=== PATIENT | female | born 1960 | race Caucasian/White ===

== ENCOUNTER 2017-02-11 19:22 | Emergency (ER) | payer BC, MEDICARE ==
[~2017-02-11] VITALS: Ht 174 cm; Wt 101.9 kg
[~2017-02-11 19:22] MED LIST: AMIT100T2 PO; ARIP15TA7 PO; BUSP15TA3 PO; CARI350T26 PO; FLUO40CA49 PO; GABA-338 PO; GLIP10TA9 PO; HYDR1TAB98 PO; INSU100V12 SQ; LISI40TA4 PO; METF-200 PO; OMEP40CA52 PO; PRAV20TA4 PO; ROPI1TAB12 PO; TRAM-277 PO; TRAZ-173 PO
--- OUTSIDE RECORDS SUMMARY | 2017-02-11 19:26 | XMS REPORT | Summary of Care ---
Author Author Jhony Chou, Jared Organization Unknown Address Unknown Phone Unavailable Care Team Providers Care Car Greaser Name Role Phone Jared Booker M.D. 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, E04.1) Status: Active Insomnia (780.52, G47.00) Status: Active Back pain (724.5, M54.9) Status: Active GERD (gastroesophageal reflux disease) (530.81, K21.9) Status: Active Neuropathy in diabetes (250.60, E11.40) Status: Active Callus of foot (700, L84) Status: Active Acne (706.1, L70.9) Status: Active Depression (311, F32.9) Status: Active Hypertension (401.9, I10) Status: Active Hypercholesterolemia (272.0, E78.0) Status: Active Neck pain, acute (723.1, M54.2) Status: Active Former smoker (V15.82, Z87.891) Status: Active Uncontrolled diabetes mellitus (250.02, E11.65) Status: Active Nausea with vomiting (787.01, R11.2) Status: Active Acute pain of left knee (719.46, M25.562) Status: Active Restless legs syndrome (333.94, G25.81) Status: Active Type 2 diabetes mellitus (250.00, E11.9) Status: Active Status post arthroscopy of left knee (V45.89, Z98.89) Status: Active Derangement, knee internal, 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.9, M23.92) Status: Active Medications Name Dates Details BusPIRone HCl - 10 MG Oral Tablet Take 1 tablet by mouth 3 times a day Quantity: 270 Jhony Chou, Jared * Start 04-Jun-2012 Active Amitriptyline HCl - 100 MG Oral Tablet Take 1 tablet by mouth at bedtime * Quantity: 90 Refills: 0 Jhony Chou, Jared * Start 04-Jun-2012 Active TraMADol HCl - 50 MG Oral Tablet TAKE ONE TO TWO TABLETS BY MOUTH THREE TIMES A DAY MUST LAST 30 DAYS * Quantity: 180 Refills: 0 Jhony Chou, aJred * Start 24-Jun-2016 Active MetFORMIN HCl - 1000 MG Oral Tablet TAKE 1 TABLET BY MOUTH TWICE A DAY * Quantity: 180 Refills: 3 Jhony Chou, Jared * Start 04-Jun-2012 Active Gabapentin 300 MG Oral Capsule TAKE ONE CAPSULE BY MOUTH 3 TIMES A DAY * Quantity: 270 Refills: 2 Jhony Chou, Jared * Start 04-Jun-2012 Active GlipiZIDE 10 MG Oral Tablet TAKE 1 TABLET BY MOUTH TWICE A DAY * Quantity: 180 Refills: 3 Jared Booker M.D. * Start 04-Jun-2012 Active MedroxyPROGESTERone Acetate 2.5 MG Oral Tablet take one tablet by mouth every day * Quantity: 30 Refills: 7 Jhony Chou, Jared * Start 06-Jul-2012 Active Lisinopril 40 MG Oral Tablet take 1 tablet by mouth every day * Quantity: 90 Refills: 3 Jared Booker M.D. * Start 04-Aug-2012 Active Omeprazole 40 MG Oral Capsule Delayed Release TAKE ONE CAPSULE BY MOUTH EVERY DAY * Quantity: 90 Refills: 3 Jared Booker M.D. * Start 12-Aug-2012 Active Hydrocodone-Acetaminophen 10-325 MG Oral Tablet TAKE TWO TABLETS BY MOUTH FOUR TIMES A DAY NEEDED FOR PAIN * Quantity: 240 Refills: 0 Jhony Chou, Jared * Start 04-Sep-2012 Active Pravastatin Sodium 20 MG Oral Tablet take 1 tablet by mouth every day * Quantity: 90 Refills: 3 Jared Booker M.D. * Start 11-Dec-2012 Active [place] needles for levemir pen. One shot a day * Quantity: 50 Refills: 11 Jhony Chou, Jared * Start 15-Dec-2012 Active TraZODone HCl - 100 MG Oral Tablet 1 1/2 to 2 tabs hs * Refills: 0 Jhony Chou, Jared * Start 13-Jan-2013 Active ROPINIRole HCl - 1 MG Oral Tablet Take 1 to 2 tablets by mouth every day * Quantity: 180 Refills: 2 Jhony Chou, Jared * Start Active Carisoprodol 350 MG Oral Tablet TAKE ONE TABLET BY MOUTH THREE TIMES A DAY * Quantity: 90 Refills: 3 Jhony Chou, Jared * Start 10-Sep-2013 Active Ibuprofen 800 MG Oral Tablet TAKE 1 TABLET BY MOUTH 3 TIMES A DAY WITH FOOD NEEDED * Quantity: 120 Refills: 3 Jhony Chou, Jared * Start 14-Jan-2014 Active FLUoxetine HCl - 20 MG Oral Capsule TAKE THREE CAPSULES BY MOUTH EVERY DAY * Quantity: 270 Refills: 2 Jhony Chou, Jared * Start 11-Oct-2014 Active Abilify 15 MG Oral Tablet TAKE 1 TABLET DAILY. * Refills: 0 Jhony Chou, Jared * Start 06-Feb-2015 Active [place]jeo SoloStar 300 UNIT/ML Subcutaneous Solution Pen-injector 25 units daily * Quantity: 1 Refills: 11 Jhony Chou, Jared * Start 13-Oct-2015 Active 1.5 ML Pen (3 Pens) Aspir-Low 81 MG Oral Tablet Delayed Release TAKE 1 TABLET DAILY DIRECTED. * Quantity: 1 Refills: 0 Jhony Chou, Jared * Start 19-Feb-2016 Active Promethazine HCl - 25 MG Oral Tablet TAKE 1 TABLET EVERY 8 HOURS NEEDED FOR NAUSEA AND VOMITING. * Quantity: 30 Refills: 1 Jhony Chou, Jared * Start Active Allergies and Adverse Reactions Name Dates Details Codeine Derivatives (Allergy) Status: Active Past Medical History Name Dates Details History of abdominal pain (V13.89, Z87.898) Status: Resolved History of acute bronchitis (V12.69, Z87.09) Status: Resolved History of allergic rhinitis (V12.69, Z87.09) Status: Resolved History of Common migraine without aura (346.10, G43.009) Status: Resolved History of depression (V11.8, Z86.59) Status: Resolved History of diabetes mellitus (V12.29, Z86.39) Status: Resolved History of essential hypertension (V12.59, Z86.79) Status: Resolved History of headache (V13.89, Z87.898) Status: Resolved History of low back pain (V13.59, Z87.39) Status: Resolved History of Stroke syndrome (434.91, I63.9) Status: Resolved Procedures Procedure Dates Details History of Lower Back Surgery History of Appendectomy History of Cholecystectomy History of Complete Colonoscopy For Polyp Removal Completed: Procedures not documented Immunization Name Dates Details Diphtheria-Tetanus Toxoids 6.7-5 LFU/0.5ML INJ on: Td on: Family History Name Dates Details Family history of Diabetes Mellitus (V18.0) Comments: Family History Status: Active Name Dates Details Family history of Diabetes Mellitus (V18.0) Status: Active Family history of Coronary Artery Disease (V17.49) Status: Active Name Dates Details Family history of Coronary Artery Disease (V17.49) Status: Active Social History Name Dates Details Unknown if ever smoked Vital Signs Date Test Result Details No Known Vitals to report Results Date Description Value Details Results not documented Plan of Care Name Dates Details Planned Observations Planned Goals not documented Interventions Provided Medication Changes* Hydrocodone-Acetaminophen 10-325 MG Oral Tablet - Renew Instructions Name Dates Details Instructions not documented Encounters Appointment; Thomas Levy M.D. Encounter Diagnosis: Problem not documented On 13-May-2016 10:45 Appointment; Thomas Levy M.D. Encounter Diagnosis: Problem not documented On 09:45 Appointment; Thomas Levy M.D. Encounter Diagnosis: Problem not documented On 09:00 Appointment; Jared Booker M.D. Encounter Diagnosis: Problem not documented On 10:15 Appointment; Jared Booker M.D. Encounter Diagnosis: Problem not documented On 19-Feb-2016 10:15 Appointment; Jared Booker M.D. Encounter Diagnosis: Problem not documented On 20-Oct-2015 10:15 Appointment; Jared Booker M.D. Encounter Diagnosis: Problem not documented On 16-Jun-2015 09:00 Appointment; Jared Booker M.D. Encounter Diagnosis: Problem not documented On 06-Feb-2015 10:00 Appointment; Jared Booker M.D. Encounter Diagnosis: Problem not documented On 22-Nov-2014 16:15 Appointment; Jared Booker M.D. Encounter Diagnosis: Problem not documented On 03-Nov-2014 10:30 Appointment; Jared Booker M.D. Encounter Diagnosis: Problem not documented On 04-Aug-2014 10:45
--- OUTSIDE RECORDS SUMMARY | 2017-02-11 19:27 | XMS REPORT ---
Author Author GENERATED, SYSTEM Organization Unknown Address Unknown Phone Unavailable Care Team Providers Care Marine Fireman Name Role Phone MD SARAH, NINI PP [phone] Reason For Visit Reason for Visit from 04/09/2016 6:40 AM:* Pt Stated Reason for Adm : "left knee arthroscopy" Chief Complaint LEFT KNEE PAIN,LEFT KNEE ARTHROSCOP Social History Social History from 04/09/2016 8:28 AM:* Tobacco Use? : Former Smoker Social History from 04/09/2016 6:40 AM:* Tobacco Use? : Former Smoker Functional Status Functional Status from 04/09/2016 9:08 AM:* LOC : Alert Functional Status from 04/09/2016 9:05 AM:* LOC : Alert Functional Status from 04/09/2016 8:29 AM:* LOC : Drowsy Functional Status from 04/09/2016 6:40 AM:* LOC : Alert * Oriented To : Person,Place,Time,Event * Weight Bearing Status : Full * Assist Level : Independent * # Assists : Independent Vital Signs Hospital Vital Signs from 04/09/2016 9:43 AM:* Height : 5/7.25 ft,in * Temperature : 97.0 F * Pulse : 83 * Respirations : 16 * BP : 134/58 Hospital Vital Signs from 04/09/2016 9:30 AM:* Height : 5/7.25 ft,in * Pulse : 83 * Respirations : 16 * BP : 121/69 Hospital Vital Signs from 04/09/2016 9:15 AM:* Height : 5/7.25 ft,in * Pulse : 85 * Respirations : 16 * BP : 122/62 Hospital Vital Signs from 04/09/2016 9:08 AM:* Height : 5/7.25 ft,in * Temperature : 97.3 F * Pulse : 81 * Respirations : 16 * BP : 128/62 Hospital Vital Signs from 04/09/2016 9:00 AM:* Heart Rate : 86 * Resp Rate : 13 * Systolic BP (mmHg) : 119 * Diastolic BP (mmHg) : 62 * Mean BP (mmHg) : 80 * O2 Saturation (%) : 93 Hospital Vital Signs from 04/09/2016 8:55 AM:* Heart Rate : 90 * Resp Rate : 16 * Systolic BP (mmHg) : 133 * Diastolic BP (mmHg) : 69 * Mean BP (mmHg) : 91 * O2 Saturation (%) : 92 Hospital Vital Signs from 04/09/2016 8:50 AM:* Heart Rate : 87 * Resp Rate : 18 * Systolic BP (mmHg) : 121 * Diastolic BP (mmHg) : 67 * Mean BP (mmHg) : 87 * O2 Saturation (%) : 92 Hospital Vital Signs from 04/09/2016 8:45 AM:* Temp : 98.4 * Heart Rate : 89 * Resp Rate : 18 * Systolic BP (mmHg) : 138 * Diastolic BP (mmHg) : 70 * Mean BP (mmHg) : 90 * O2 Saturation (%) : 100 Hospital Vital Signs from 04/09/2016 8:40 AM:* Heart Rate : 89 * Resp Rate : 18 * Systolic BP (mmHg) : 152 * Diastolic BP (mmHg) : 83 * Mean BP (mmHg) : 99 * O2 Saturation (%) : 99 Hospital Vital Signs from 04/09/2016 8:35 AM:* Heart Rate : 97 * Resp Rate : 20 * Systolic BP (mmHg) : 151 * Diastolic BP (mmHg) : 75 * Mean BP (mmHg) : 97 * O2 Saturation (%) : 98 Hospital Vital Signs from 04/09/2016 8:30 AM:* Temp : 97.5 * Heart Rate : 105 * Resp Rate : 16 * Systolic BP (mmHg) : 145 * Diastolic BP (mmHg) : 84 * Mean BP (mmHg) : 96 * O2 Saturation (%) : 95 Hospital Vital Signs from 04/09/2016 6:40 AM:* Weight : 104.3/ kg * Height : 5/7.25 ft,in Hospital Vital Signs from 04/09/2016 6:23 AM:* Weight : 104.3/ kg * Height : 5/7.25 ft,in * Temperature : 98.4 F * Pulse : 77 * Respirations : 16 * BP : 121/67 Results Problems Encounter Diagnosis * Fall Risk Status:Active. Encounters Encounter Diagnosis * Fall Risk Status:Active. Plan of Care Follow-up Appointments from 04/09/2016 8:28 AM:* #1 Office appointment: : Dr. Oakley * #1 Date/Time : 04/15/2016 9:45 AM * Address # 1 : [facility]: [address] [place]- [phone] or Procedures * Completed left knee arthroscopy with medial meniscectomy, Left, by MD JACE OAKLEY, on 04/09/2016 7:42 AM Immunizations No immunizations administered or ordered. Hospital Course Hospital Discharge Instructions How to care for yourself at home from 04/09/2016 8:28 AM:* Discharge Activity : Activity as tolerated,Do not engage in sports, heavy work or heavy lifting until your physician gives permission * Do not drive or operate machinery for: : 24 hours * Discharge Diet : As before hospitalization,Diet as tolerated * Discharge Diet: : Avoid greasy and spicy foods for 24 hours as they may cause nausea * Discharge Wound Care : Keep dressings dry * Call your doctor if: : Fever over 101 F or severe chills,Chest pain or other unexplained symptoms,Tingling or numbness develops,A sudden increase or decrease in weight,You have persistent or worsening symptoms * Specific Discharge Teaching Instructions provided: : No * Discharge on Warfarin : No Allergies, Adverse Reactions, Alerts * codeine causes can't breathe, swelling. * No Latex Allergy. * No IV Contrast Allergy. Medication Medication reconciliation has not been performed.
--- OUTSIDE RECORDS SUMMARY | 2017-02-11 19:27 | XMS REPORT | Summary of Care ---
Author Author Jhony Chou, Jared Organization Unknown Address Unknown Phone Unavailable Care Team Providers Care Calender Roll Press Operator Name Role Phone Jared Booker M.D. Unavailable [...] Status: Active Depression (311, F32.9) Status: Active Neck pain, acute (723.1, M54.2) Status: Active Former smoker (V15.82, Z87.891) Status: Active Uncontrolled diabetes mellitus (250.02, E11.65) Status: Active Nausea with vomiting (787.01, R11.2) Status: Active Acute pain of left knee (719.46, M25.562) Status: Active Restless legs syndrome (333.94, G25.81) Status: Active Status post arthroscopy of left knee (V45.89, Z98.890) Status: Active Derangement, knee internal, left (717.9, M23.92) Status: Active Type 2 diabetes mellitus (250.00, E11.9) Status: Active Hypercholesterolemia (272.0, E78.00) Status: Active Hypertension (401.9, I10) Status: Active Medications Name Dates Details BusPIRone [...] TABLETS BY MOUTH THREE TIMES A DAY . MUST LAST 30 DAYS * Quantity: 180 Refills: 0 Jhony Chou, Jared * Start 15-Oct-2016 Active MetFORMIN HCl - 1000 MG Oral Tablet TAKE 1 TABLET BY MOUTH TWICE A DAY * Quantity: 180 Refills: 2 Jhony Chou, Jared * Start 14-Oct-2016 Active Gabapentin 300 MG Oral Capsule TAKE ONE CAPSULE BY MOUTH 3 TIMES A DAY * Quantity: 270 Refills: 2 Jhony Chou, Jared * Start 04-Jun-2012 Active GlipiZIDE 10 MG Oral Tablet TAKE 1 TABLET BY MOUTH TWICE A DAY * Quantity: 180 Refills: 3 Jhony Chou, Jared * Start 21-Oct-2016 Active MedroxyPROGESTERone Acetate 2.5 MG Oral Tablet take one tablet by mouth every day * Quantity: 90 Refills: 2 Jhony Chou, Jared * Start 17-Jul-2016 Active Lisinopril 40 MG Oral Tablet take 1 tablet by mouth every day * Quantity: 90 Refills: 0 Jhony Chou, Jared * Start 23-Oct-2016 Active Omeprazole 40 MG Oral Capsule Delayed Release TAKE ONE CAPSULE BY MOUTH EVERY DAY * Quantity: 90 Refills: 0 Jhony Chou, Jared * Start 23-Oct-2016 Active Hydrocodone-Acetaminophen 10-325 MG Oral Tablet TAKE TWO TABLETS BY MOUTH FOUR TIMES A DAY NEEDED FOR PAIN * Quantity: 240 Refills: 0 Jhony Chou, Jared * Start 04-Sep-2012 Active Pravastatin Sodium 20 MG Oral Tablet take 1 tablet by mouth every day * Quantity: 90 Refills: 3 Jhony Chou, Jared * Start 11-Dec-2012 Active [place] needles for levemir pen. One shot a [...] TIMES A DAY * Quantity: 90 Refills: 2 Jhony Chou, Jared * Start 15-Oct-2016 Active Ibuprofen 800 MG Oral Tablet TAKE 1 TABLET BY MOUTH 3 TIMES A DAY WITH FOOD NEEDED * Quantity: 120 Refills: 2 Jhony Chou, Jared * Start 16-Sep-2016 Active FLUoxetine HCl - 20 MG Oral Capsule TAKE THREE CAPSULES BY MOUTH EVERY DAY * Quantity: 270 Refills: 2 Jhony Chou Jared * Start 11-Oct-2014 Active Abilify 15 MG Oral Tablet TAKE 1 TABLET DAILY. * Refills: 0 Jhony Chou, Jared * Start 06-Feb-2015 Active Aspir-Low 81 MG Oral Tablet Delayed Release TAKE 1 TABLET DAILY DIRECTED. * Quantity: 1 Refills: 0 Jhony Chou, Jared * Start 19-Feb-2016 Active Promethazine HCl - 25 MG Oral Tablet TAKE 1 TABLET EVERY 8 HOURS NEEDED FOR NAUSEA AND VOMITING. * Quantity: 30 Refills: 1 Jared Booker M.D. * Start Active Levemir FlexTouch 100 UNIT/ML Subcutaneous Solution Pen-injector 28 units q hs for E11.9 * Quantity: 1 Refills: 11 Jared Booker M.D. * Start 28-Oct-2016 Active 3 ML Pen (5 Pens) Allergies and Adverse Reactions Name Dates Details [...] of Complete Colonoscopy For Polyp Removal Completed: Quant Microalbumin 1106 Ordered: 28-Oct-2016 Comprehensive Metabolic Panel 1212 Ordered: 28-Oct-2016 HEMOGLOBIN A1C 3507 Ordered: 28-Oct-2016 Immunization Name Dates Details Diphtheria-Tetanus Toxoids 6.7-5 [...] smoked Vital Signs Date Test Result Details 28-Oct-2016 08:53 BP Systolic 128 mm[Hg] Status: Comments: Location: ; Position: BP Diastolic 66 mm[Hg] Status: Comments: Location: ; Position: Heart Rate 108 /min Status: Comments: Location: ; Height 69 in Status: Weight 220 lb Status: Physical Findings 94 Status: Comments: O2 Saturation Body Mass Index Calculated 32.49 kg/m2 Status: Body Surface Area Calculated 2.15 m2 Status: Results Date Description Value Details 28-Oct-2016 09:00 Urinalysis, reflex to Micro and Culture ([facility]) 3317 Comments: Testing performed by [facility], [address] [place] [id number] Testing performed by [facility], [address] [place] [id number] Fasting : 0 hours pH 5.5 Range: 5.0-7.5 SP GRAVITY 1.030 Range: 1.010-1.030 APPEARANCE Cloudy (Abnormal) Range: Clear COLOR Yellow Range: Straw-Yellow PROTEIN 15 mg/dL (Abnormal) Range: Negative-Trace GLUCOSE Negative mg/dL Range: Negative KETONES Negative mg/dL Range: Negative BILIRUBIN Negative Range: Negative BLOOD Negative Range: Negative UROBIL 0.2 EU/dL Range: 0.2-1.0 NITRITE Negative Range: Negative LEUKOCYTES 3+ (Abnormal) Range: Negative 09:25 CBC w/ Auto Diff 7150 Comments: Fastin hours WBC 8.5 K/uL Range: 4.5-11.0 RBC 4.94 mil/uL Range: 3.60-5.00 HGB 14.5 g/dL Range: 12.0-16.0 HCT 44.2 % Range: 36.0-48.0 MCV 89.5 fL Range: 80.0-99.0 MCH 29.4 pg Range: 27.3-32.5 MCHC 32.9 % Range: 32.0-36.0 RDW 13.7 % Range: 11.6-14.8 PLATELETS 248 K/uL Range: 150-400 MPV 7.0 fL Range: 6.0-11.0 %NEUTRO 56.3 % Range: 37.0-80.0 %LYMPHS 33.9 % Range: 13.0-50.0 %MONO 4.6 % Range: 0.0-12.0 %EOS 2.4 % Range: 0.0-7.0 %BASO 0.7 % Range: 0.0-2.5 %CHELI 2.1 % Range: 0.0-5.0 NEUTRO 4.8 K/uL Range: 2.0-6.9 LYMPHS 2.9 K/uL Range: 0.6-3.4 MONOS 0.4 K/uL Range: 0.0-0.9 EOS 0.2 K/uL Range: 0.0-0.7 BASO 0.1 K/uL Range: 0.0-0.2 09:56 Comprehensive Metabolic Panel 1212 Comments: Fastin hours SODIUM 141 mmol/L Range: 133-144 POTASSIUM 3.8 mmol/L Range: 3.5-5.1 CHLORIDE 102 mmol/L Range: 98-110 CARBON DIOXIDE 27.4 mmol/L Range: 23.0-33.0 ANION GAP 12 mmol/L Range: 6-16 BUN 11 mg/dL Range: 7-18 CREATININE, SERUM 0.96 mg/dL Range: 0.55-1.02 BUN:CREATININE RATIO 11 EST GFR, >60 ml/min Range: >60 EST GFR, NON-AFR BURKINAN >60 ml/min Range: >60 Comments: EST GFR is reported in ml/min per 1.73 m2 of body surface area. ----- GLUCOSE 153 mg/dL (Above high threshold) Range: 70-100 ALK PHOSPHATASE 104 U/L Range: 46-116 TOTAL BILIRUBIN 0.30 mg/dL Range: 0.20-1.00 AST 53 U/L (Above high threshold) Range: 8-35 ALT 47 U/L Range: 14-59 ALBUMIN 3.8 g/dL Range: 3.4-5.0 TOTAL PROTEIN 8.1 g/dL Range: 6.4-8.2 A/G RATIO 0.9 units (Below low threshold) Range: 1.0-1.8 CALCIUM 8.7 mg/dL Range: 8.5-10.1 09:56 LIPID PROFILE 1184 Comments: Fastin hours CHOLESTEROL 156 mg/dL Range: <200 TRIGLYCERIDES 143 mg/dL Range: 30-200 HDL Cholesterol 57 mg/dL Range: >39 NON HDL CHOLESTEROL 99 CARDIAC RSK FACTOR 2.7 units (Below low threshold) Range: 4.4-5.0 LDL - CALCULATED 70 mg/dL Range: 0-130 10:36 HEMOGLOBIN A1C 3507 Comments: Fastin hours Hemoglobin A1C 7.9 % ESTIMATED AVG. GLUCOSE 180 10:49 Urine Microscopic [facility] Comments: Fastin hours WBC 11-20 /HPF (Abnormal) Range: 0-5 Comments: Specimen referred to Reference Lab for Culture----- RBC 0-2 /HPF Range: 0-2 HYAL CAST 21-50 /LPF (Abnormal) Range: 0-2 BACTERIA 3+ /HPF (Abnormal) Range: Negative-Trace Comments: Specimen referred to Reference Lab for Culture----- EPITH 11-20 /HPF (Abnormal) Range: 0-10 Plan of Care Name Dates Details Planned Observations Comprehensive Metabolic Panel 1212 On 25-Feb-2017 Intent HEMOGLOBIN A1C 3507 On 25-Feb-2017 Intent Planned Goals not documented Planned Encounters Appointment; Provider: Jared Booker M.D. On 21-Feb-2017 10:15 Interventions Provided Medication Changes* Hydrocodone-Acetaminophen 10-325 MG Oral Tablet - Renew * Lantus SoloStar 100 UNIT/ML Subcutaneous Solution Pen-injector - Renew * Levemir FlexTouch 100 UNIT/ML Subcutaneous Solution Pen-injector - Renew Labs/Procedures/Imaging* Quant Microalbumin 1106; To be Done: 28 Oct 2016 * CBC w/ Auto Diff 7150; Done: Oct 28 2016 8:16AM * Comprehensive Metabolic Panel 1212; Done: Oct 28 2016 8:16AM * HEMOGLOBIN A1C 3507; Done: Oct 28 2016 8:16AM * LIPID PROFILE 1184; Done: Oct 28 2016 8:16AM * Urinalysis, reflex to Micro and Culture ([facility]) 8016; Done: Oct 28 2016 8:16AM Instructions Name Dates Details Instructions not documented [...]
--- OUTSIDE RECORDS SUMMARY | 2017-02-11 19:27 | XMS REPORT | Summary of Care ---
Author Author Conrad Helms Unknown Address [address], [place] [id number] Phone Unavailable Care Team Providers Care Geriatric Physician Name Role Phone Jared Booker M.D. 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: Active Medications Name Dates Details BusPIRone HCl - 10 MG Oral Tablet Take 1 tablet by mouth 3 times a day Quantity: 270 Jared Booker M.D.* Started 04-Jun-2012 ActiveAmitriptyline HCl - 100 MG Oral Tablet Take 1 tablet by mouth at bedtime * Quantity: 90 Refills: 0 Jared Booker M.D.* Started 04-Jun-2012 ActiveTraMADol HCl - 50 MG Oral Tablet TAKE ONE TO TWO TABLETS BY MOUTH THREE TIMES A DAY MUST LAST 30 DAYS * Quantity: 180 Refills: 0 Jared Booker M.D.* Started 04-Jun-2012 ActiveMetFORMIN HCl - 1000 MG Oral Tablet TAKE 1 TABLET BY MOUTH TWICE A DAY * Quantity: 180 Refills: 3 Jared Booker M.D.* Started 04-Jun-2012 ActiveGabapentin 300 MG Oral Capsule TAKE ONE CAPSULE BY MOUTH AM AND NOON AND TWO AT BEDTIME * Quantity: 360 Refills: 1 Jared Booker M.D.* Started 04-Jun-2012 ActiveGlipiZIDE 10 MG Oral Tablet TAKE 1 TABLET BY MOUTH TWICE A DAY * Quantity: 180 Refills: 3 Jared Booker M.D.* Started 04-Jun-2012 ActiveMedroxyPROGESTERone Acetate 2.5 MG Oral Tablet take one tablet by mouth every day * Quantity: 30 Refills: 7 Jared Booker M.D.* Started 06-Jul-2012 ActiveLisinopril 40 MG Oral Tablet take 1 tablet by mouth every day * Quantity: 90 Refills: 3 Jared Booker M.D.* Started 04-Aug-2012 ActiveOmeprazole 40 MG Oral Capsule Delayed Release TAKE ONE CAPSULE BY MOUTH EVERY DAY * Quantity: 90 Refills: 3 Jared Booker M.D.* Started 12-Aug-2012 ActiveHydrocodone-Acetaminophen 10-325 MG Oral Tablet TAKE TWO TABLETS BY MOUTH FOUR TIMES A DAY NEEDED FOR PAIN * Quantity: 240 Refills: 0 Jared Booker M.D.* Started 04-Sep-2012 ActivePravastatin Sodium 20 MG Oral Tablet take 1 tablet by mouth every day * Quantity: 90 Refills: 3 Jared Booker M.D.* Started 11-Dec-2012 Active[place] needles for levemir pen. One shot a day * Quantity: 50 Refills: 11 Jared Booker M.D.* Started 15-Dec-2012 ActiveTraZODone HCl - 100 MG Oral Tablet 1 1/2 to 2 tabs hs * Refills: 0 Jared Booker M.D.* Started 13-Jan-2013 ActiveROPINIRole HCl - 1 MG Oral Tablet Take 1 to 2 tablets by mouth every day * Quantity: 180 Refills: 2 Jared Booker M.D.* Started ActiveCarisoprodol 350 MG Oral Tablet TAKE ONE TABLET BY MOUTH THREE TIMES A DAY * Quantity: 90 Refills: 3 Jared Booker M.D.* Started 10-Sep-2013 ActiveIbuprofen 800 MG Oral Tablet TAKE ONE TABLET BY MOUTH THREE TIMES A DAY WITH FOOD NEEDED * Quantity: 270 Refills: 3 Jared Booker M.D.* Started 14-Jan-2014 ActiveFLUoxetine HCl - 20 MG Oral Capsule TAKE THREE CAPSULES BY MOUTH EVERY DAY * Quantity: 270 Refills: 2 Jared Booker M.D.* Started 11-Oct-2014 ActiveAbilify 15 MG Oral Tablet TAKE 1 TABLET DAILY. * Refills: 0 Jared Booker M.D.* Started 06-Feb-2015 ActiveToujeo SoloStar 300 UNIT/ML Subcutaneous Solution Pen-injector 25 units daily * Quantity: 1 Refills: 11 Jared oBoker M.D.* Started 13-Oct-2015 Active1.5 ML Pen (3 Pens) Aspir-Low 81 MG Oral Tablet Delayed Release TAKE 1 TABLET DAILY DIRECTED. * Quantity: 1 Refills: 0 Jared Booker M.D.* Started 19-Feb-2016 ActivePromethazine HCl - 25 MG Oral Tablet TAKE 1 TABLET EVERY 8 HOURS NEEDED FOR NAUSEA AND VOMITING. * Quantity: 30 Refills: 1 Jared Booker M.D.* Started Active Allergies and Adverse Reactions Name Dates Details Codeine Derivatives Status: Active Past Medical History Name Dates [...] of Complete Colonoscopy For Polyp Removal Completed: Comprehensive Metabolic Panel 1212 Ordered: HEMOGLOBIN A1C 3507 Ordered: Immunization Name Dates Details Diphtheria-Tetanus Toxoids 6.7-5 LFU/0.5ML Intramuscular Injectable Administered on: Td Administered on: Family History Unknown Family Member* Name Dates Details Family history of Diabetes Mellitus (V18.0) Comments: Family History Status: Active Mother* Name Dates Details Family history of Diabetes Mellitus (V18.0) Status: Active Family history of Coronary Artery Disease (V17.49) Status: Active Father* Name Dates Details Family history of Coronary Artery Disease (V17.49) Status: Active Social History Smoking Status* Unknown if ever smoked Vital Signs Date Test Result Details 09:39 BP Systolic 136 mm[Hg] Status: BP Diastolic 82 mm[Hg] Status: Height 69 in Status: Weight 230 lb Status: Body Mass Index Calculated 33.97 kg/m2 Status: Body Surface Area Calculated 2.19 m2 Status: 10:27 BP Systolic 140 mm[Hg] Status: BP Diastolic 70 mm[Hg] Status: Temperature 97.8 f Status: Heart Rate 88 /min Status: Respiration Rate 12 /min Status: Weight 230 lb Status: Body Mass Index Calculated 33.97 kg/m2 Status: Body Surface Area Calculated 2.19 m2 Status: Results Date Description Value Details 12:00 XRay KNEE-Left Comments: Exam Date: 03/22/2016 10: 57Dictation Date: 03/22/2016 12:00 X KNEE COMP (MIN 4V) LT (Better) Plan of Care Planned Observations* Name Dates Details Planned Goals not documented Goal Planned Encounters* Appointment; Provider: Jared Booker On 21-Jun-2016 10:30 * Appointment; Provider: Thomas Levy On 09:45 * Appointment; Provider: Thomas Leyv On 07:00 * Appointment; Provider: Buck Stuart On 10:00 Instructions * Instructions not documented Encounters Appointment; Thomas Levy Encounter Diagnosis: Problem not documented On 09:00 Appointment; Jared Booker Diagnosis: Problem not documented On 10:15 Appointment; Jared Booker Diagnosis: Problem not documented On 19-Feb-2016 10:15 Appointment; Jared Booker Encounter Diagnosis: Problem not documented On 20-Oct-2015 10:15 Appointment; Jared Booker Encounter Diagnosis: Problem not documented On 16-Jun-2015 09:00 Appointment; Jared Booker Encounter Diagnosis: Problem not documented On 06-Feb-2015 10:00 Appointment; Jared Booker Diagnosis: Problem not documented On 22-Nov-2014 16:15 Appointment; Jared Booker Diagnosis: Problem not documented On 03-Nov-2014 10:30 Appointment; Jared Booker Diagnosis: Problem not documented On 04-Aug-2014 10:45 Appointment; Jared Booker Encounter Diagnosis: Problem not documented On 18-May-2014 10:15
--- OUTSIDE RECORDS SUMMARY | 2017-02-11 19:27 | XMS REPORT | Summary of Care ---
Author Author Jhony Chou, Jared Organization Unknown Address Unknown Phone Unavailable Care Team Providers Care Financial Investment Adviser Name Role Phone Jared Booker M.D. Unavailable [...] daily * Quantity: 1 Refills: 11 Jared Booker M.D.* Started 13-Oct-2015 Active1.5 ML Pen (3 [...] Levy On 09:45 * Appointment; Provider: Thomas Levy On 07:00 * Appointment; Provider: Buck Stuart On 10:00 Instructions * Instructions not documented Encounters Appointment; Thomas Levy Encounter Diagnosis: Problem not documented On 09:00 Appointment; Jared Booker Encounter Diagnosis: Problem not documented On 10:15 Appointment; Jared Booker Encounter Diagnosis: Problem not documented On 19-Feb-2016 10:15 Appointment; Jared Booker Encounter Diagnosis: Problem not documented On 20-Oct-2015 10:15 Appointment; Jared Booker Encounter Diagnosis: Problem not documented On 16-Jun-2015 09:00 Appointment; Jared Booker Encounter Diagnosis: Problem not documented On 06-Feb-2015 10:00 Appointment; Jared Booker Encounter Diagnosis: Problem not documented On 22-Nov-2014 16:15 Appointment; Jared Booker Encounter Diagnosis: Problem not documented On 03-Nov-2014 10:30 Appointment; Jared Booker Diagnosis: Problem not documented On 04-Aug-2014 10:45 Appointment; Jared Booker Encounter Diagnosis: Problem not documented On 18-May-2014 10:15
--- OUTSIDE RECORDS SUMMARY | 2017-02-11 19:27 | XMS REPORT | Summary of Care ---
Author Author Jared Booker M.D. Organization Unknown Address [address] [place], [place] [id number] Phone Unavailable Care Team Providers Care Press Feeder Name Role Phone Jared Booker M.D. Unavailable [...] Status: Active Insomnia (780.52, G47.00) Status: Active Restless legs syndrome (333.94, G25.81) Status: Active Back pain (724.5, M54.9) Status: Active GERD (gastroesophageal reflux disease) (530.81, K21.9) Status: Active Neuropathy in diabetes (250.60, E11.40) Status: Active Callus of foot (700, L84) Status: Active Acne (706.1, L70.9) Status: Active Depression (311, F32.9) Status: Active Hypertension (401.9, I10) Status: Active Hypercholesterolemia (272.0, E78.0) Status: Active Neck pain, acute (723.1, M54.2) Status: Active Type 2 diabetes mellitus (250.00, E11.9) Status: Active Medications Name Dates Details Cyclobenzaprine HCl - 10 MG Oral Tablet TAKE ONE TABLET BY MOUTH THREE TIMES A DAY NEEDED Quantity: 90 Jared Booker M.D.* Started 04-Jun-2012 ActiveBusPIRone HCl - 10 MG Oral Tablet Take 1 tablet by mouth 3 times a day * Quantity: 270 Refills: 2 Jared Booker M.D.* Started 04-Jun-2012 ActiveAmitriptyline HCl - 100 MG Oral Tablet Take 1 tablet by mouth at bedtime * Quantity: 90 Refills: 2 Jared Booker M.D.* Started 04-Jun-2012 ActiveTraMADol HCl - 50 MG Oral Tablet TAKE 1-2 TABLETS BY MOUTH THREE TIMES A DAY *MUST LAST 30 DAYS* * Quantity: 180 Refills: 1 Jared Booker M.D.* Started 04-Jun-2012 ActiveMetFORMIN HCl - 1000 MG Oral Tablet TAKE 1 TABLET BY MOUTH TWICE A DAY * Quantity: 180 Refills: 3 Jared Booker M.D.* Started 04-Jun-2012 ActiveGabapentin 300 MG Oral Capsule TAKE ONE CAPSULE BY MOUTH 3 TIMES A DAY * Quantity: 270 Refills: 1 Jared Booker M.D.* Started 04-Jun-2012 [...] Refills: 11 Jared Booker M.D.* Started 15-Dec-2012 ActiveROPINIRole HCl - 1 MG Oral Tablet Take 1 to 2 tablets by mouth every day * Quantity: 180 Refills: 2 Jared Booker M.D.* Started ActiveCarisoprodol 350 MG Oral Tablet TAKE ONE TABLET BY MOUTH THREE TIMES A DAY * Quantity: 90 Refills: 3 Jared Booker M.D.* Started 10-Sep-2013 ActiveFLUoxetine HCl - 20 MG Oral Capsule TAKE THREE CAPSULES BY MOUTH EVERY DAY * Quantity: 270 Refills: 2 Jared Booker M.D.* Started 11-Oct-2014 ActiveAbilify 15 MG Oral Tablet TAKE 1 TABLET DAILY. * Refills: 0 Jared Booker M.D.* Started 06-Feb-2015 ActiveIbuprofen 800 MG Oral Tablet TAKE ONE TABLET BY MOUTH THREE TIMES A DAY WITH FOOD NEEDED * Quantity: 270 Refills: 3 Jared Booker M.D.* Started 14-Jan-2014 ActiveTraZODone HCl - 50 MG Oral Tablet TAKE ONE TABLET BY MOUTH EVERY NIGHT AT BEDTIME * Quantity: 90 Refills: 3 Jared Booker M.D.* Started 13-Jan-2013 ActiveToujeo SoloStar 300 UNIT/ML Subcutaneous Solution Pen-injector 5 am 15 pm for E11.0 * Quantity: 1 Refills: 11 Jared Booker M.D.* Started 13-Oct-2015 Active1.5 ML Pen (3 Pens) Allergies and Adverse Reactions Name Dates [...] Details Results not documented Plan of Care Planned Observations* Name Dates Details Planned Goals not documented Goal Planned Encounters* Appointment; Provider: Jared Booker On 16-Feb-2016 10:45 * Appointment; Provider: Buck Stuart On 10:00 Instructions * Instructions not documented Encounters Appointment; Jared Booker Diagnosis: Problem not documented On 20-Oct-2015 10:15 Appointment; Jared Booker Encounter Diagnosis: Problem not documented On 16-Jun-2015 09:00 Appointment; Jared Booker Encounter Diagnosis: Problem not documented On 06-Feb-2015 10:00 Appointment; Jared Booker Encounter Diagnosis: Problem not documented On 22-Nov-2014 16:15 Appointment; Jared Booker Encounter Diagnosis: Problem not documented On 03-Nov-2014 10:30 Appointment; Jared Booker Encounter Diagnosis: Problem not documented On 04-Aug-2014 10:45 Appointment; Jared Booker Diagnosis: Problem not documented On 18-May-2014 10:15
--- OUTSIDE RECORDS SUMMARY | 2017-02-11 19:27 | XMS REPORT | Summary of Care ---
Author Author Jhony Chou, Jared Organization Unknown Address Unknown Phone Unavailable Care Team Providers Care Biomass Boiler Operator Name Role Phone Jared Booker M.D. [...] Hypertension (401.9, I10) Status: Active Hypercholesterolemia (272.0, E78.00) Status: Active Neck pain, acute (723.1, M54.2) Status: Active Former smoker (V15.82, Z87.891) Status: Active Uncontrolled diabetes mellitus (250.02, E11.65) Status: Active Nausea with vomiting (787.01, R11.2) Status: Active Acute pain of left knee (719.46, M25.562) Status: Active Type 2 diabetes mellitus (250.00, E11.9) Status: Active Restless legs syndrome (333.94, G25.81) [...] Refills: 0 Jhony Chou, Jared * Start 24-Jul-2016 Active MetFORMIN HCl - 1000 MG Oral Tablet TAKE 1 TABLET BY MOUTH TWICE A DAY * Quantity: 180 Refills: 3 Jared Booker M.D. * Start 04-Jun-2012 Active Gabapentin 300 MG Oral Capsule TAKE ONE CAPSULE BY MOUTH 3 TIMES A DAY * Quantity: 270 Refills: 2 Jared Booker M.D. * Start 04-Jun-2012 Active GlipiZIDE 10 MG Oral Tablet TAKE 1 TABLET BY MOUTH TWICE A DAY * Quantity: 180 Refills: 3 Jared Booker M.D. * Start 04-Jun-2012 Active MedroxyPROGESTERone Acetate 2.5 MG Oral Tablet take one tablet by mouth every day * Quantity: 90 Refills: 2 Jared Booker M.D. * Start 17-Jul-2016 Active Lisinopril 40 MG [...] Jared Booker M.D. * Start 11-Dec-2012 Active [place] needles for levemir pen. One shot a [...]
--- OUTSIDE RECORDS SUMMARY | 2017-02-11 19:28 | XMS REPORT | Summary of Care ---
Author Author Thomas Levy M.D. Organization Unknown Address Unknown Phone Unavailable Care Team Providers Care Repair Weaver Name Role Phone Daja Levy M.D. Unavailable Unavailable Jared Booker M.D. Unavailable Unavailable Jared Booker [...] times a day Quantity: 270 Jared Booker M.D. * Start 04-Jun-2012 Active Amitriptyline HCl - 100 MG Oral Tablet Take 1 tablet by mouth at bedtime * Quantity: 90 Refills: 0 Jhony Chou, Jared * Start 04-Jun-2012 Active TraMADol HCl - 50 MG Oral Tablet TAKE ONE TO TWO TABLETS BY MOUTH THREE TIMES A DAY MUST LAST 30 DAYS * Quantity: 30 Refills: 0 Jared Booker M.D. * Start 04-Jun-2012 Active MetFORMIN HCl - 1000 MG Oral [...] * Quantity: 30 Refills: 7 Jared Booker M.D. * Start 06-Jul-2012 Active Lisinopril 40 MG [...] * Quantity: 240 Refills: 0 Jared Booker M.D. * Start 04-Sep-2012 Active Pravastatin Sodium 20 MG Oral Tablet take 1 tablet by mouth every day * Quantity: 90 Refills: 3 Jared Booker M.D. * Start 11-Dec-2012 Active [place] needles for levemir pen. One shot a [...] MOUTH THREE TIMES A DAY * Quantity: 30 Refills: 0 Jhony Chou, Jared * Start 10-Sep-2013 Active Ibuprofen 800 MG Oral Tablet TAKE ONE TABLET BY MOUTH THREE TIMES A DAY WITH FOOD NEEDED * Quantity: 270 Refills: 3 Jhony Chou, Jared * Start [...] Details Planned Observations Planned Goals not documented Planned Encounters Appointment; Provider: Jared Booker M.D. On 21-Jun-2016 10:30 Instructions Name Dates Details Instructions not documented [...] documented On 04-Aug-2014 10:45 Appointment; Jared Booker M.D. Encounter Diagnosis: Problem not documented On 18-May-2014 10:15
--- OUTSIDE RECORDS SUMMARY | 2017-02-11 19:28 | XMS REPORT | Summary of Care ---
Author Author Jhony Chou, Jared Organization Unknown Address Unknown Phone Unavailable Care Team Providers Care Child Center Assistant Name Role Phone Jared Booker M.D. Unavailable [...] Jared Booker M.D. * Start 11-Dec-2012 Active [place] needles for levemir pen. One shot a [...] Goals not documented Planned Encounters Appointment; Provider: Thomas Levy M.D. On 07:00 Interventions Provided Medication Changes* Gabapentin 300 MG Oral Capsule - Renew with Changes Labs/Procedures/Imaging* XRay KNEE-Left; Done: Mar 22 2016 12:00PM Instructions Name Dates Details Instructions not documented Encounters Appointment; Jared Booker M.D. Encounter Diagnosis: Problem [...]
--- OUTSIDE RECORDS SUMMARY | 2017-02-11 19:28 | XMS REPORT | Summary of Care ---
Author Author Jared Booker M.D. Organization Unknown Address [address] [place], [place] [id number] Phone Unavailable Care Team Providers Care Economic History Teacher Name Role Phone Jared Booker M.D. Unavailable [...] NEEDED Quantity: 90 Jared Booker M.D.* Started 24-Jul-2015 ActiveBusPIRone HCl - 10 MG Oral Tablet [...] LAST 30 DAYS* * Quantity: 180 Refills: 2 Jared Booker M.D.* Started 04-Jun-2012 ActiveMetFORMIN HCl [...] Booker M.D.* Started 15-Dec-2012 ActiveTraZODone HCl - 50 MG Oral Tablet TAKE ONE TABLET BY MOUTH EVERY NIGHT AT BEDTIME * Quantity: 90 Refills: 3 Jared Booker M.D.* Started 13-Jan-2013 ActiveROPINIRole HCl - 1 MG Oral Tablet Take 1 to 2 tablets by mouth every day * Quantity: 180 Refills: 2 Jared Booker M.D.* Started ActiveCarisoprodol 350 MG Oral Tablet TAKE ONE TABLET BY MOUTH THREE TIMES A DAY * Quantity: 90 Refills: 0 Jared Booker M.D.* Started 10-Sep-2013 ActiveIbuprofen 800 [...] Polyp Removal Completed: Comprehensive Metabolic Panel 1212 Ordered:20-Oct-2015 HEMOGLOBIN A1C 3507 Ordered:20-Oct-2015 Immunization Name Dates Details Diphtheria-Tetanus Toxoids 6.7-5 [...] smoked Vital Signs Date Test Result Details 20-Oct-2015 10:44 BP Systolic 144 mm[Hg] Status: BP Diastolic 84 mm[Hg] Status: Temperature 97.8 f Status: Heart Rate 88 /min Status: Respiration Rate 16 /min Status: Weight 232 lb Status: Body Mass Index Calculated 34.26 kg/m2 Status: Body Surface Area Calculated 2.2 m2 Status: Results Date Description Value Details 19-Oct-2015 11:40 Urinalysis, reflex to Micro and Culture ([facility]) 2196 Comments: Fastin hours pH 7.5 (Better) Range: 5.0-7.5 SP GRAVITY 1.015 (Better) Range: 1.010-1.030 APPEARANCE Clear (Better) Range: Clear COLOR Yellow (Better) Range: Straw-Yellow PROTEIN Negative mg/dL (Better) Range: Negative-Trace GLUCOSE Negative mg/dL (Better) Range: Negative KETONES Negative mg/dL (Better) Range: Negative BILIRUBIN Negative (Better) Range: Negative BLOOD Negative (Better) Range: Negative UROBIL 0.2 EU/dL (Better) Range: 0.2-1.0 NITRITE Negative (Better) Range: Negative LEUKOCYTES Negative (Better) Range: Negative 12:11 CBC w/ Auto Diff 7150 Comments: Fastin hours WBC 7.9 K/uL (Better) Range: 4.5-11.0 RBC 4.61 mil/uL (Better) Range: 3.60-5.00 HGB 13.8 g/dL (Better) Range: 12.0-16.0 HCT 42.2 % (Better) Range: 36.0-48.0 MCV 91.4 fL (Better) Range: 80.0-99.0 MCH 30.0 pg (Better) Range: 27.3-32.5 MCHC 32.8 % (Better) Range: 32.0-36.0 RDW 12.8 % (Better) Range: 11.6-14.8 PLATELETS 250 K/uL (Better) Range: 150-400 MPV 7.5 fL (Better) Range: 6.0-11.0 %NEUTRO 61.8 % (Better) Range: 37.0-80.0 %LYMPHS 27.6 % (Better) Range: 13.0-50.0 %MONO 4.1 % (Better) Range: 0.0-12.0 %EOS 4.0 % (Better) Range: 0.0-7.0 %BASO 0.7 % (Better) Range: 0.0-2.5 %CHELI 1.8 % (Better) Range: 0.0-5.0 NEUTRO 4.9 K/uL (Better) Range: 2.0-6.9 LYMPHS 2.2 K/uL (Better) Range: 0.6-3.4 MONOS 0.3 K/uL (Better) Range: 0.0-0.9 EOS 0.3 K/uL (Better) Range: 0.0-0.7 BASO 0.1 K/uL (Better) Range: 0.0-0.2 12:13 Comprehensive Metabolic Panel 1212 Comments: Fastin hours SODIUM 137 mmol/L (Better) Range: 133-144 POTASSIUM 4.0 mmol/L (Better) Range: 3.5-5.1 CHLORIDE 98 mmol/L (Better) Range: 98-110 CARBON DIOXIDE 29.5 mmol/L (Better) Range: 23.0-33.0 ANION GAP 10 mmol/L (Better) Range: 6-16 BUN 7 mg/dL (Better) Range: 7-18 CREATININE, SERUM 0.69 mg/dL (Better) Range: 0.55-1.02 Comments: Please note new reference ranges effective 2015.----- BUN:CREATININE RATIO 10 (Better) EST GFR, >60 ml/min (Better) Range: >60 EST GFR, NON-AFR BANGLADESHI >60 ml/min (Better) Range: >60 Comments: EST GFR is reported in ml/min per 1.73 m2 of body surface area. For -Luxembourger, please multiple result by 1.2.----- GLUCOSE 138 mg/dL (Above high threshold) Range: 70-100 ALK PHOSPHATASE 92 U/L (Better) Range: 46-116 TOTAL BILIRUBIN 0.20 mg/dL (Better) Range: 0.20-1.00 AST 13 U/L (Better) Range: 8-35 ALT 26 U/L (Better) Range: 14-59 Comments: Please note new reference ranges. Effective 12/15/2014.----- ALBUMIN 3.7 g/dL (Better) Range: 3.4-5.0 TOTAL PROTEIN 7.7 g/dL (Better) Range: 6.4-8.2 A/G RATIO 0.9 units (Below low threshold) Range: 1.0-1.8 CALCIUM 8.7 mg/dL (Better) Range: 8.5-10.1 12:14 LIPID PROFILE 1184 Comments: Fastin hours CHOLESTEROL 162 mg/dL (Better) Range: <200 TRIGLYCERIDES 133 mg/dL (Better) Range: 30-200 HDL Cholesterol 55 mg/dL (Better) Range: >39 NON HDL CHOLESTEROL 107 (Better) CARDIAC RSK FACTOR 2.9 units (Below low threshold) Range: 4.4-5.0 LDL - CALCULATED 80 mg/dL (Better) Range: 0-130 12:58 HEMOGLOBIN A1C 3507 Comments: Fastin hours Hemoglobin A1C 7.8 % (Better) ESTIMATED AVG. GLUCOSE 177 (Better) 16:00 Quant Microalbumin 1106 Comments: Fastin hours MICROALBUMIN, URINE 3.8 mg/L (Better) Range: <20.1 Plan of Care Planned Observations* Name Dates Details Planned Goals not documented Goal Planned Encounters* Appointment; Provider: Jared Booker On 16-Feb-2016 10:45 * Appointment; Provider: Buck Stuart On 10:00 Instructions * Instructions not documented Encounters Appointment; Jared Booker Encounter Diagnosis: Problem not documented On 20-Oct-2015 10:15 Appointment; Jared Booker Diagnosis: Problem not documented On 16-Jun-2015 09:00 Appointment; Jared Booker Diagnosis: Problem not documented On 06-Feb-2015 10:00 Appointment; Jared Booker Diagnosis: Problem not documented On 22-Nov-2014 16:15 Appointment; Jared Booker Diagnosis: Problem not documented On 03-Nov-2014 10:30 Appointment; Jared Booker Diagnosis: Problem not documented On 04-Aug-2014 10:45 Appointment; Jared Booker Diagnosis: Problem not documented On 18-May-2014 10:15 Appointment; Jared Booker Diagnosis: Problem not documented On 13-Jan-2014 10:00
--- OUTSIDE RECORDS SUMMARY | 2017-02-11 19:28 | XMS REPORT | Summary of Care ---
Author Author Jhony Chou, Jared Organization Unknown Address [address], [place] [id number] Phone Unavailable Care Team Providers Care Quality Assurance Manager Name Role Phone Jared Booker M.D. Unavailable [...] Restless legs syndrome (333.94, G25.81) Status: Active Medications Name Dates Details BusPIRone HCl - 10 MG Oral Tablet Take 1 tablet by mouth 3 times a day Quantity: 270 Jared Booker M.D.* Started 04-Jun-2012 ActiveTraMADol HCl [...] Panel 1212 Ordered: HEMOGLOBIN A1C 3507 Ordered: XRay KNEE-Left Ordered: Immunization Name Dates Details Diphtheria-Tetanus Toxoids [...] smoked Vital Signs Date Test Result Details 10:27 BP Systolic 140 mm[Hg] Status: BP Diastolic 70 mm[Hg] Status: Temperature 97.8 f Status: Heart Rate 88 /min Status: Respiration Rate 12 /min Status: Weight 230 lb Status: Body Mass Index Calculated 33.97 kg/m2 Status: Body Surface Area Calculated 2.19 m2 Status: Results Date Description Value Details Results not documented Plan of Care Planned Observations* Name Dates Details Planned Goals not documented Goal Planned Encounters* Appointment; Provider: Jared Booker On 21-Jun-2016 10:30 * Appointment; Provider: Buck Stuart On 10:00 [...]
--- OUTSIDE RECORDS SUMMARY | 2017-02-11 19:28 | XMS REPORT | Summary of Care ---
Author Author Jhony Chou, Jared Organization Unknown Address Unknown Phone Unavailable Care Team Providers Care Joggle Press Operator Name Role Phone Jared Booker [...] Refills: 0 Jhony Chou, Jared * Start 24-May-2016 Active MetFORMIN HCl - 1000 MG Oral [...] Jhony Chou, Jared * Start 04-Jun-2012 Active MedroxyPROGESTERone Acetate 2.5 [...] Jared Booker M.D. * Start 11-Dec-2012 Active [place] needles for levemir pen. One shot a [...] not documented Planned Encounters Appointment; Provider: Jared oBoker M.D. On 21-Jun-2016 10:30 Interventions Provided Medication Changes* Ibuprofen 800 MG Oral Tablet - Renew Instructions Name Dates Details Instructions not documented Encounters Appointment; Thomas Levy M.D. Encounter Diagnosis: Problem not documented On 13-May-2016 10:45 Appointment; Thomas Leyv M.D. Encounter Diagnosis: Problem not documented On [...]
--- OUTSIDE RECORDS SUMMARY | 2017-02-11 19:29 | XMS REPORT | Summary of Care ---
Author Author Jhony Chou, Jared Organization Unknown Address [address] [place], [place] [id number] Phone Unavailable Care Team Providers Care [facility] Director Name Role Phone Jared Booker M.D. Unavailable [...] Status: Active Acne (706.1, L70.9) Status: Active Hypercholesterolemia (272.0, E78.0) Status: Active Hypertension (401.9, I10) Status: Active Depression (311, F32.9) Status: Active Type 2 diabetes mellitus (250.00, [...] Started 13-Oct-2015 Active1.5 ML Pen (3 Pens) Levemir FlexTouch 100 UNIT/ML Subcutaneous Solution Pen-injector INJECT 15 UNITS DAILY * Quantity: 15 Refills: 2 Jared Booker M.D.* Started 18-May-2014 Active Allergies and Adverse Reactions Name Dates Details Codeine Derivatives Status: Active Past Medical History Name Dates Details History of abdominal pain (V13., Z87.898) Status: Resolved History of acute bronchitis [...] Planned Encounters* Appointment; Provider: Jared Booker On 20-Oct-2015 10:15 * Appointment; Provider: Buck Stuart On 10:00 [...]
--- OUTSIDE RECORDS SUMMARY | 2017-02-11 19:29 | XMS REPORT | Summary of Care ---
Author Author Jhony Chou, Jared Organization Unknown Address [address] [place], [place] [id number] Phone Unavailable Care Team Providers Care Animal Technician Name Role Phone Jared Booker M.D. Unavailable [...] Refills: 3 Jared Booker M.D.* Started 14-Jan-2014 ActiveLevemir FlexTouch 100 UNIT/ML Subcutaneous Solution Pen-injector INJECT 15 UNITS DAILY * Quantity: 15 Refills: 2 Jared Booker M.D.* Started 18-May-2014 ActiveFLUoxetine HCl - 20 MG Oral Capsule [...] Name Dates Details History of abdominal pain (V1., Z87.898) Status: Resolved History of acute bronchitis [...]
--- OUTSIDE RECORDS SUMMARY | 2017-02-11 19:29 | XMS REPORT | Summary of Care ---
Author Author Jhony Chou, Jared Organization Unknown Address Unknown Phone Unavailable Care Team Providers Care Machinist/Machine Builder Name Role Phone Jared Booker M.D. Unavailable [...] Refills: 0 Jhony Chou, Jared * Start 02-Sep-2016 Active MetFORMIN HCl - 1000 MG Oral [...] Jared Booker M.D. * Start 11-Dec-2012 Active [place] needles for levemir pen. One shot a [...] 1 Jhony Chou, Jared * Start Active Lantus SoloStar 100 UNIT/ML Subcutaneous Solution Pen-injector 25 units q evening * Quantity: 1 Refills: 11 Jhony Chou, Jared * Start 16-Aug-2016 Active 3 ML Pen (5 Pens) Allergies [...]
--- OUTSIDE RECORDS SUMMARY | 2017-02-11 19:29 | XMS REPORT | Summary of Care ---
Author Author Jared Booker M.D. Organization Unknown Address [address] [place], [place] [id number] Phone Unavailable Care Team Providers Care Credit Adjuster Name Role Phone Jared Booker M.D. Unavailable [...] Refills: 0 Jared Booker M.D.* Started 04-Sep-2012 Active[place] needles for levemir pen. One shot a day * Quantity: 50 Refills: 11 Jared Booker M.D.* Started 15-Dec-2012 ActiveTraZODone HCl - 50 MG Oral Tablet TAKE ONE TABLET BY MOUTH EVERY NIGHT AT BEDTIME * Quantity: 90 Refills: 3 Jared Booker M.D.* Started 13-Jan-2013 ActiveAbilify 15 MG Oral Tablet TAKE 1 TABLET DAILY. * Refills: 0 Jared Booker M.D.* Started 06-Feb-2015 ActiveIbuprofen 800 MG Oral Tablet TAKE ONE TABLET BY MOUTH THREE TIMES A DAY WITH FOOD NEEDED * Quantity: 270 Refills: 3 Jared Booker M.D.* Started 14-Jan-2014 ActiveROPINIRole HCl - 1 MG Oral Tablet Take 1 to 2 tablets by mouth every day * Quantity: 180 Refills: 2 Jared Booker M.D.* Started ActivePravastatin Sodium 20 MG Oral Tablet take 1 tablet by mouth every day * Quantity: 90 Refills: 3 Jared Booker M.D.* Started 11-Dec-2012 ActiveFLUoxetine HCl - 20 MG Oral Capsule TAKE THREE CAPSULES BY MOUTH EVERY DAY * Quantity: 270 Refills: 2 Jared Booker M.D.* Started 11-Oct-2014 ActiveToujeo SoloStar 300 UNIT/ML Subcutaneous Solution Pen-injector 5 am 15 pm for E11.0 * Quantity: 1 Refills: 11 Jared Booker M.D.* Started 13-Oct-2015 Active1.5 ML Pen (3 Pens) Carisoprodol 350 MG Oral Tablet TAKE ONE TABLET BY MOUTH THREE TIMES A DAY * Quantity: 90 Refills: 3 Jared Booker M.D.* Started 10-Sep-2013 Active Allergies and Adverse Reactions Name Dates [...] documented On 18-May-2014 10:15 Appointment; Jared Booker Encounter Diagnosis: Problem not documented On 13-Jan-2014 10:00
--- OUTSIDE RECORDS SUMMARY | 2017-02-11 19:30 | XMS REPORT | Summary of Care ---
Author Author Thomas Levy M.D. Unknown Address Unknown Phone Unavailable Care Team Providers Care Purchasing/Receiving Name Role Phone Jared Booker M.D. Unavailable [...] knee internal, left (717.9, M23.92) Status: Active Status post arthroscopy of left knee (V45.89, Z98.89) Status: Active Medications Name Dates Details BusPIRone [...] Refills: 2 Jared Booker M.D.* Started 04-Jun-2012 ActiveGlipiZIDE 10 [...] 10:30 * Appointment; Provider: Thomas Levy On 07:00 * Appointment; Provider: Buck Stuart On 10:00 Instructions * Instructions not documented Encounters Appointment; Thomas Levy Encounter Diagnosis: Problem not documented On 09:45 Appointment; Thomas Levy Encounter Diagnosis: Problem not [...]
--- OUTSIDE RECORDS SUMMARY | 2017-02-11 19:30 | XMS REPORT | Summary of Care ---
Author Author Jhony Chou, Jared Organization Unknown Address Unknown Phone Unavailable Care Team Providers Care Junior Engineer Name Role Phone Jared Booker M.D. Unavailable [...] Jared Booker M.D. * Start 11-Dec-2012 Active [place] needles for levemir pen. One shot a [...]
--- OUTSIDE RECORDS SUMMARY | 2017-02-11 19:30 | XMS REPORT | Summary of Care ---
Author Author Jhony Chou, Jared Organization Unknown Address [address] [place], [place] [phone] Phone Unavailable Care Team Providers Care Copper Roller Handler Printing Name Role Phone Jared Booker M.D. Unavailable [...] Status: Active Hypertension (401.9, I10) Status: Active Acute pain of right shoulder (719.41, M25.511) Status: Active Dysuria (788.1, R30.0) Status: Active Medications Name Dates Details BusPIRone [...] * Quantity: 180 Refills: 0 Jared Booker M.D. * Start 03-Feb-2017 Active MetFORMIN HCl - 1000 MG Oral Tablet TAKE 1 TABLET BY MOUTH TWICE A DAY * Quantity: 180 Refills: 2 Jared Booker M.D. * Start 14-Oct-2016 Active Gabapentin 300 MG Oral Capsule TAKE ONE CAPSULE BY MOUTH 3 TIMES A DAY * Quantity: 270 Refills: 2 Jared Booker M.D. * Start 21-Jan-2017 Active GlipiZIDE 10 MG Oral Tablet TAKE [...] every day * Quantity: 90 Refills: 0 Jared Booker M.D. * Start 21-Jan-2017 Active Omeprazole 40 MG Oral Capsule Delayed Release TAKE ONE CAPSULE BY MOUTH EVERY DAY * Quantity: 90 Refills: 0 Jared Booker M.D. * Start 21-Jan-2017 Active Hydrocodone-Acetaminophen 10-325 MG Oral Tablet TAKE TWO TABLETS BY MOUTH FOUR TIMES A DAY NEEDED FOR PAIN * Quantity: 240 Refills: 0 Jared Booker M.D. * Start 04-Sep-2012 Active Pravastatin Sodium 20 MG Oral Tablet take 1 tablet by mouth every day * Quantity: 90 Refills: 3 Jhony Chou, Jared * Start 11-Dec-2012 Active TraZODone HCl - 100 MG Oral Tablet 1 1/2 to 2 tabs hs * Refills: 0 Jhony Chou, Jared * Start 13-Jan-2013 Active ROPINIRole HCl - 1 MG Oral Tablet Take 1 to 2 tablets by mouth every day * Quantity: 180 Refills: 2 Jared Booker M.D. * Start 21-Jan-2017 Active Carisoprodol 350 MG Oral Tablet TAKE ONE TABLET BY MOUTH THREE TIMES A DAY * Quantity: 90 Refills: 2 Jhony Chou, Jared * Start 10-Sep-2013 Active Ibuprofen 800 MG Oral Tablet TAKE 1 TABLET BY MOUTH 3 TIMES A DAY WITH FOOD NEEDED * Quantity: 120 Refills: 2 Jhony Chou, Jared * Start 16-Dec-2016 Active FLUoxetine HCl - 20 MG Oral Capsule TAKE THREE CAPSULES BY MOUTH EVERY DAY * Quantity: 270 Refills: 2 Jared Booker M.D. * Start 11-Oct-2014 Active Benzonatate 100 MG Oral Capsule TAKE ONE CAPSULE 2-3 TIMES DAILY DIRECTED * Quantity: 30 Refills: 0 Jared Booker M.D. * Start 22-Nov-2016 Active Abilify 15 MG Oral Tablet TAKE 1 TABLET DAILY. * Refills: 0 Jhony Chou, Jared * Start 06-Feb-2015 Active Aspir-Low 81 MG Oral Tablet Delayed Release TAKE 1 TABLET DAILY DIRECTED. * Quantity: 1 Refills: 0 Jared Booker M.D. * Start 19-Feb-2016 Active Promethazine HCl - 25 MG Oral Tablet TAKE 1 TABLET EVERY 8 HOURS NEEDED FOR NAUSEA AND VOMITING. * Quantity: 30 Refills: 1 Jared Booker M.D. * Start Active Levemir FlexTouch 100 UNIT/ML Subcutaneous Solution Pen-injector 28 units q hs for E11.9 * Quantity: 1 Refills: 11 Jared Booker M.D. * Start 28-Oct-2016 Active 3 ML Pen (5 Pens) [place] needles for levemir pen. One shot a day * Quantity: 50 Refills: 11 Jhony ChouJared * Start 15-Dec-2012 Active Allergies and Adverse Reactions Name Dates [...] smoked Vital Signs Date Test Result Details 06-Feb-2017 11:30 BP Systolic 130 mm[Hg] Status: Comments: Location: ; Position: BP Diastolic 82 mm[Hg] Status: Comments: Location: ; Position: Temperature 98.8 f Status: Comments: Method: Heart Rate 88 /min Status: Comments: Location: ; Physical Findings 16 Status: Comments: Respiration Height 68.5 in Status: Weight 227 lb Status: Physical Findings 95 Status: Comments: O2 Saturation Body Mass Index Calculated 34.01 kg/m2 Status: Body Surface Area Calculated 2.17 m2 Status: Results Date Description Value Details 06-Feb-2017 11:39 Urinalysis, reflex to Micro and Culture ([facility]) 3588 Comments: Testing performed by [facility], [address] [place] [address] pH 7.0 Range: 5.0-7.5 SP GRAVITY 1.015 Range: 1.010-1.030 APPEARANCE Clear Range: Clear COLOR Yellow Range: Straw-Yellow PROTEIN Negative mg/dL Range: Negative-Trace GLUCOSE Negative mg/dL Range: Negative KETONES Negative mg/dL Range: Negative BILIRUBIN Negative Range: Negative BLOOD Negative Range: Negative UROBIL 0.2 EU/dL Range: 0.2-1.0 NITRITE Negative Range: Negative LEUKOCYTES Negative Range: Negative Plan of Care Name Dates Details Planned Observations Planned Goals not documented Planned Encounters Appointment; Provider: Jared Booker M.D. On 21-Feb-2017 10:15 Instructions Name Dates Details Instructions not documented Encounters Appointment; Jared Booker M.D. Encounter Diagnosis: Problem not documented On 28-Oct-2016 08:45 Appointment; Thomas Levy M.D. Encounter Diagnosis: Problem [...]
--- OUTSIDE RECORDS SUMMARY | 2017-02-11 19:30 | XMS REPORT | Summary of Care ---
Author Author Jhony Chou, Jared Organization Unknown Address Unknown Phone Unavailable Care Team Providers Care Party Host/Hostess Name Role Phone Jared Booker M.D. Unavailable [...] A DAY * Quantity: 270 Refills: 2 Jhnoy Chou, Jared * Start 04-Jun-2012 Active GlipiZIDE [...] Refills: 0 Jhony Chou, Jared * Start 27-Nov-2016 Active Pravastatin Sodium 20 MG Oral Tablet take 1 tablet by mouth every day * Quantity: 90 Refills: 3 Jhony Chou, Jared * Start 11-Dec-2012 Active [place] needles for levemir pen. One shot a [...] every day * Quantity: 180 Refills: 2 Johny Chou, Jared * Start Active Carisoprodol 350 [...] for E11.9 * Quantity: 1 Refills: 11 Jhony Chou, Jared * Start 28-Oct-2016 Active 3 ML Pen [...] 09:00 Urinalysis, reflex to Micro and Culture ([facility]) 0142 Comments: Testing performed by [facility], [address] [place] [id number] Testing performed by [facility], [address] [place] [address] [place] [address] Fasting : 0 hours pH 5.5 Range: [...] >60 ml/min Range: >60 EST GFR, NON-AFR EGYPTIAN >60 ml/min Range: >60 Comments: EST GFR [...] Culture----- EPITH 11-20 /HPF (Abnormal) Range: 0-10 29-Oct-2016 11:41 URINE CULTURE [id number] Comments: Quest performed at: [facility] [[email or web address]] [employer], [address] [place], [address], Train Planner: Erasto Avendano D.O., MPHQuest Collection Date/Time: [id number] Results Received Date/Time: [id number] Reported Date/Time: [id number] FASTING:NOQuest performed at: [facility] [[email or web address]] [employer], [address] [place], [address], Train Planner: Erasto Avendano D.O., MPHQuest Collection Date/Time: [id number] Results Received Date/Time: Reported Date/Time: FASTING:NO Fastin hours CULTURE, URINE, ROUTINE SEE NOTE Comments: CULTURE, URINE, ROUTINE MICRO NUMBER: [id number] TEST STATUS: FINAL SPECIMEN SOURCE: URINE SPECIMEN QUALITY: ADEQUATE RESULT: Multiple organisms present, each less than 10,000 CFU/mL. These organisms, commonly found on external and internal genitalia, are considered to be colonizers. No further testing performed.[MN]----- Plan of Care Name Dates Details Planned Observations Planned Goals not documented Planned Encounters Appointment; Provider: Jared Booker M.D. On 21-Feb-2017 10:15 Planned Medications Hydrocodone-Acetaminophen 10-325 MG Oral Tablet Ordered: 27-Nov-2016 Active Instructions Name Dates Details Instructions not documented [...]
--- OUTSIDE RECORDS SUMMARY | 2017-02-11 19:30 | XMS REPORT | Summary of Care ---
Author Author Provider, Outside Organization Unknown Address Unknown Phone Unavailable Care Team Providers Care Imaging Specialist Name Role Phone Jhony Chou, Jared Unavailable Unavailable Jared Booker PP Unavailable Unavailable [...] 2 diabetes mellitus (250.00, E11.9) Status: Active Former smoker (V15.82, Z87.891) Status: Active Medications Name Dates Details BusPIRone [...] smoked Vital Signs Date Test Result Details 19-Feb-2016 10:08 BP Systolic 134 mm[Hg] Status: BP Diastolic 74 mm[Hg] Status: Temperature 99 f Status: Heart Rate 92 /min Status: Respiration Rate 12 /min Status: Height 69 in Status: Weight 240 lb Status: Body Mass Index Calculated 35.44 kg/m2 Status: Body Surface Area Calculated 2.23 m2 Status: Results Date Description Value Details 12-Feb-2016 12:34 Comprehensive Metabolic Panel 1212 Comments: Fastin hours SODIUM 139 mmol/L (Better) Range: 133-144 POTASSIUM 4.4 mmol/L (Better) Range: 3.5-5.1 CHLORIDE 101 mmol/L (Better) Range: 98-110 CARBON DIOXIDE 24.5 mmol/L (Better) Range: 23.0-33.0 ANION GAP 14 mmol/L (Better) Range: 6-16 BUN 7 mg/dL (Better) Range: 7-18 CREATININE, SERUM 0.82 mg/dL (Better) Range: 0.55-1.02 Comments: Please note new reference ranges effective 2015.----- BUN:CREATININE RATIO 9 (Better) EST GFR, >60 ml/min (Better) Range: >60 EST GFR, NON-AFR URUGUAYAN >60 ml/min (Better) Range: >60 Comments: EST GFR is reported in ml/min per 1.73 m2 of body surface area. For -Montenegrin, please multiple result by 1.2.----- GLUCOSE 221 mg/dL (Above high threshold) Range: 70-100 ALK PHOSPHATASE 93 U/L (Better) Range: 46-116 TOTAL BILIRUBIN 0.20 mg/dL (Better) Range: 0.20-1.00 AST 21 U/L (Better) Range: 8-35 ALT 33 U/L (Better) Range: 14-59 Comments: Please note new reference ranges. Effective 12/15/2014.----- ALBUMIN 3.5 g/dL (Better) Range: 3.4-5.0 TOTAL PROTEIN 7.4 g/dL (Better) Range: 6.4-8.2 A/G RATIO 0.9 units (Below low threshold) Range: 1.0-1.8 CALCIUM 8.7 mg/dL (Better) Range: 8.5-10.1 13:54 HEMOGLOBIN A1C 3507 Comments: Fastin hours Hemoglobin A1C 7.8 % (Better) ESTIMATED AVG. GLUCOSE 177 (Better) 19-Feb-2016 10:14 Diabetic Eye Exam No diabetic retinopathy (Better) Range : 0 Plan of Care Planned Observations* Name Dates Details Planned Goals not documented Goal Planned Encounters* Appointment; Provider: Buck Stuart On 10:00 Instructions [...]
--- OUTSIDE RECORDS SUMMARY | 2017-02-11 19:31 | XMS REPORT | Summary of Care ---
Author Author Jhony Chou, Jared Organization Unknown Address [address], [place] [id number] Phone Unavailable Care Team Providers Care Associate Merchandiser Name Role Phone Jared Booker M.D. Unavailable [...] Jared Booker M.D. * Start 04-Jun-2012 Active TraMADol HCl - [...] Refills: 3 Jared Booker M.D. * Start 21-Oct-2016 Active MedroxyPROGESTERone Acetate 2.5 [...] Jared Booker M.D. * Start 11-Dec-2012 Active [place] needles for levemir pen. One shot a day * Quantity: 50 Refills: 11 Jared Booker M.D. * Start 15-Dec-2012 Active TraZODone HCl - [...] A DAY * Quantity: 90 Refills: 2 Jared Booker M.D. * Start 10-Sep-2013 Active Ibuprofen 800 MG [...]
--- OUTSIDE RECORDS SUMMARY | 2017-02-11 19:31 | XMS REPORT | Summary of Care ---
Author Author Jhony Chou, Jared Organization Unknown Address [address], [place] [id number] Phone Unavailable Care Team Providers Care Secretary Name Role Phone Jared Booker M.D. Unavailable [...] Active Former smoker (V15.82, Z87.891) Status: Active Acute pain of left knee (719.46, M25.562) Status: Active Type 2 diabetes mellitus (250.00, E11.9) Status: Active Uncontrolled diabetes mellitus (250.02, E11.65) Status: Active Nausea with vomiting (787.01, R11.2) Status: Active Medications Name Dates Details BusPIRone [...] ml/min (Better) Range: >60 EST GFR, NON-AFR ENGLISH >60 ml/min (Better) Range: >60 Comments: EST GFR is reported in ml/min per 1.73 m2 of body surface area. For -Mexican, please multiple result by 1.2.----- GLUCOSE 221 [...] No diabetic retinopathy (Better) Range : 0 10:29 Diabetic Foot - Pulse Exam Negative (Better) Range: 0 10:29 Diabetic Foot - Sensory Exam Negative (Better) Range: 0 10:29 Diabetic Foot - Visual Exam Negative (Better) Range: 0 Plan of Care Planned Observations* Name Dates Details Planned Goals not documented Goal Planned Encounters* Appointment; Provider: Jared Booker On 10:15 * Appointment; Provider: Buck Stuart On [...]
--- OUTSIDE RECORDS SUMMARY | 2017-02-11 19:31 | XMS REPORT | Summary of Care ---
Author Author Jared Booker M.D. Organization Unknown Address [address] [place], [place] [phone] Phone Unavailable Care Team Providers Care Privacy Director Name Role Phone Jared Booker M.D. [...]
--- OUTSIDE RECORDS SUMMARY | 2017-02-11 19:31 | XMS REPORT | Summary of Care ---
Author Author Jhony Chou, Jared Organization Unknown Address [address] [place], [place] [phone] Phone Unavailable Care Team Providers Care Chuck Tender Name Role Phone Jared Booker M.D. Unavailable [...]
--- OUTSIDE RECORDS SUMMARY | 2017-02-11 19:32 | XMS REPORT | Summary of Care ---
Author Author Jhony Chou, Jared Organization Unknown Address Unknown Phone Unavailable Care Team Providers Care Box Blank Machine Operator Name Role Phone Jared Booker M.D. [...] Jhony Chou, Jared * Start 11-Dec-2012 Active [place] needles for levemir pen. One shot a [...] AND VOMITING. * Quantity: 30 Refills: 1 Melvina Booker M.D.ew * Start Active Lantus SoloStar 100 UNIT/ML [...] of Complete Colonoscopy For Polyp Removal Completed: CBC w/ Auto Diff 7150 Ordered: 28-Oct-2016 Comprehensive Metabolic Panel 1212 Ordered: 28-Oct-2016 HEMOGLOBIN A1C 3507 Ordered: 28-Oct-2016 Urinalysis, reflex to Micro and Culture ([facility]) 8016 Ordered: Oct-2016 LIPID PROFILE 1184 Ordered: 28-Oct-2016 Quant Microalbumin 1106 Ordered: 28-Oct-2016 Comprehensive Metabolic [...] On 25-Feb-2017 Intent Planned Goals not documented Interventions Provided Medication Changes* Hydrocodone-Acetaminophen 10-325 MG Oral Tablet - Renew * Lantus SoloStar 100 UNIT/ML Subcutaneous Solution Pen-injector - Renew Labs/Procedures/Imaging* CBC w/ Auto Diff 7150; To be Done: 28 Oct 2016 * Comprehensive Metabolic Panel 1212; To be Done: 28 Oct 2016 * HEMOGLOBIN A1C 3507; To be Done: 28 Oct 2016 * LIPID PROFILE 1184; To be Done: 28 Oct 2016 * Quant Microalbumin 1106; To be Done: 28 Oct 2016 * Urinalysis, reflex to Micro and Culture ([facility]) 8016; To be Done: 28 Oct 2016 Instructions Name Dates Details Instructions not documented [...]
--- OUTSIDE RECORDS SUMMARY | 2017-02-11 19:32 | XMS REPORT | Summary of Care ---
Author Author Ana Rosa Chou, Ramone Jorge Unknown Address Unknown Phone Unavailable Care Team Providers Care Clear Coat Sprayer Name Role Phone Ana Rosa Chou, Ramone Unavailable Unavailable Jared Booker M.D. Unavailable Unavailable [...] A DAY NEEDED FOR PAIN * Quantity: 80 Refills: 0 Ramone Oseguera M.D. * Start 04-Sep-2012 Active Pravastatin Sodium 20 MG Oral Tablet take 1 tablet by mouth every day * Quantity: 90 Refills: 3 Jared Booker M.D. * Start 11-Dec-2012 Active [place] needles for levemir pen. One shot a day * Quantity: 50 Refills: 11 Jhony Chou Jared * Start 15-Dec-2012 Active TraZODone HCl - 100 MG Oral Tablet 1 1/2 to 2 tabs hs * Refills: 0 Jhony Chou, Jared * Start 13-Jan-2013 Active ROPINIRole HCl - 1 MG Oral Tablet Take 1 to 2 tablets by mouth every day * Quantity: 180 Refills: 2 Jhony Chou, Jared * Start 21-Jan-2017 Active Carisoprodol 350 MG [...] Jhony Chou Jared * Start 11-Oct-2014 Active Benzonatate 100 MG Oral Capsule TAKE ONE CAPSULE 2-3 TIMES DAILY DIRECTED * Quantity: 30 Refills: 0 Melvina Booker M.D.ew * Start 22-Nov-2016 Active Abilify 15 MG [...] 1 Jhony Chou, Jared * Start Active Levemir FlexTouch 100 UNIT/ML Subcutaneous Solution Pen-injector 28 units q hs for E11.9 * Quantity: 1 Refills: 11 Melvina Booker M.D.ew * Start 28-Oct-2016 Active 3 ML Pen [...]
--- OUTSIDE RECORDS SUMMARY | 2017-02-11 19:32 | XMS REPORT | Summary of Care ---
Author Author Jhony Chou, Jared Organization Unknown Address [address] [place], [place] [phone] Phone Unavailable Care Team Providers Care Gericare Aide Teacher Name Role Phone Jared Booker M.D. [...] Uncontrolled diabetes mellitus (250.02, E11.65) Status: Active Medications Name Dates Details BusPIRone HCl - 10 MG Oral Tablet Take 1 tablet by mouth 3 times a day Quantity: 270 Jared Bookre M.D.* Started 04-Jun-2012 ActiveTraMADol HCl - 50 [...] Refills: 0 Jared Booker M.D.* Started 19-Feb-2016 Active Allergies and Adverse Reactions Name Dates [...] ml/min (Better) Range: >60 EST GFR, NON-AFR COLOMBIAN >60 ml/min (Better) Range: >60 Comments: EST GFR is reported in ml/min per 1.73 m2 of body surface area. For -Macanese, please multiple result by 1.2.----- GLUCOSE 221 [...]
--- OUTSIDE RECORDS SUMMARY | 2017-02-11 19:32 | XMS REPORT | Summary of Care ---
Author Author Jhony Chou, Jared Organization Unknown Address Unknown Phone Unavailable Care Team Providers Care Branch Operations Manager Name Role Phone Provider, Outside Unavailable Unavailable Jared Booker M.D. Unavailable Unavailable [...] Restless legs syndrome (333.94, G25.81) Status: Active Derangement, knee internal, left (717.9, [...] Jared Booker M.D. * Start 11-Dec-2012 Active [place] needles for levemir pen. One shot a [...] Provider: Jared Booker M.D. On 21-Jun-2016 10:30 Appointment; Provider: Thomas Levy M.D. On 13-May-2016 10:45 Interventions Provided Medication Changes* Hydrocodone-Acetaminophen 10-325 MG [...]
--- OUTSIDE RECORDS SUMMARY | 2017-02-11 19:33 | XMS REPORT | Summary of Care ---
Author Author Jared Booker M.D. Organization Unknown Address [address] [place], [place] [phone] Phone Unavailable Care Team Providers Care Litigation Legal Secretary Name Role Phone Jared Booker M.D. [...]
--- OUTSIDE RECORDS SUMMARY | 2017-02-11 19:33 | XMS REPORT | Summary of Care ---
Author Author Jhony Chou, Jared Organization Unknown Address Unknown Phone Unavailable Care Team Providers Care Motion Graphics Designer Name Role Phone Jared Booker M.D. Unavailable [...] Jared Booker M.D. * Start 11-Dec-2012 Active [place] needles for levemir pen. One shot a [...] Provider: Jared Booker M.D. On 21-Jun-2016 10:30 Interventions Provided Medication Changes* Hydrocodone-Acetaminophen 10-325 MG [...]
--- OUTSIDE RECORDS SUMMARY | 2017-02-11 19:33 | XMS REPORT | Summary of Care ---
Author Author Jhony Chou, Jared Organization Unknown Address Unknown Phone Unavailable Care Team Providers Care Investment Accounting Clerk Name Role Phone Jared Booker M.D. Unavailable [...] knee internal, left (717.9, M23.92) Status: Active Hypercholesterolemia (272.0, E78.00) Status: Active Hypertension (401.9, I10) Status: Active Type 2 diabetes mellitus (250.00, E11.9) Status: Active Medications Name Dates Details BusPIRone [...] Jhony Chou, Jared * Start 04-Jun-2012 Active MetFORMIN HCl - [...] Jhony Chou, Jared * Start 11-Dec-2012 Active [place] needles for levemir pen. One shot a [...] Jhony Chou, Jared * Start 11-Oct-2014 Active Benzonatate 100 MG Oral Capsule TAKE ONE CAPSULE 2-3 TIMES DAILY DIRECTED * Quantity: 30 Refills: 0 Jhony Chou, Jared * Start 22-Nov-2016 Active Abilify 15 MG [...] Removal Completed: Comprehensive Metabolic Panel 1212 Ordered: 28-Oct-2016 HEMOGLOBIN [...] to report Results Date Description Value Details 21-Nov-2016 11:03 Diabetic Eye Exam Diabetic Retinopathy Present Plan of Care Name Dates Details Planned [...]
--- OUTSIDE RECORDS SUMMARY | 2017-02-11 19:34 | XMS REPORT | Summary of Care ---
Author Author Jhony Chou, Jared Organization Unknown Address Unknown Phone Unavailable Care Team Providers Care Lung Gun Operator Name Role Phone Jared Booker M.D. [...] Status: Active Acne (706.1, L70.9) Status: Active Neck pain, acute (723.1, M54.2) [...] Status: Active Hypertension (401.9, I10) Status: Active Cough (786.2, R05) Status: Active Depression (311, F32.9) Status: Active Medications Name Dates Details BusPIRone [...] Refills: 0 Jared Booker M.D. * Start 12-Nov-2016 Active MetFORMIN HCl - 1000 MG Oral [...] Refills: 0 Jared Booker M.D. * Start 23-Oct-2016 Active Omeprazole 40 MG Oral Capsule Delayed Release TAKE ONE CAPSULE BY MOUTH EVERY DAY * Quantity: 90 Refills: 0 Jared Booker M.D. * Start 23-Oct-2016 Active Hydrocodone-Acetaminophen 10-325 MG Oral Tablet TAKE TWO TABLETS BY MOUTH FOUR TIMES A DAY NEEDED FOR PAIN * Quantity: 240 Refills: 0 Jared Booker M.D. * Start 27-Nov-2016 Active Pravastatin Sodium 20 MG Oral Tablet take 1 tablet by mouth every day * Quantity: 90 Refills: 3 Jared Booker M.D. * Start 11-Dec-2012 Active [place] needles for levemir pen. One shot a [...] Refills: 2 Jared Booker M.D. * Start Active Carisoprodol 350 MG Oral Tablet TAKE ONE TABLET BY MOUTH THREE TIMES A DAY * Quantity: 90 Refills: 2 Jared Booker M.D. * Start 15-Oct-2016 Active Ibuprofen 800 MG [...] Renew Labs/Procedures/Imaging* CBC w/ Auto Diff 7150; Done: Oct 28 2016 8:16AM * Comprehensive Metabolic Panel 1212; Done: Oct 28 2016 8:16AM * HEMOGLOBIN A1C 3507; Done: Oct 28 2016 8:16AM * LIPID PROFILE 1184; Done: Oct 28 2016 8:16AM * Urinalysis, reflex to Micro and Culture ([facility]) 8016; Done: Oct 28 2016 8:16AM [...]
--- OUTSIDE RECORDS SUMMARY | 2017-02-11 19:34 | XMS REPORT | Summary of Care ---
Author Author Jared Booker M.D. Organization Unknown Address [address], [place] [id number] Phone Unavailable Care Team Providers Care Metal Milling Machine Operator Name Role Phone Jared Booker [...] 11:40 Urinalysis, reflex to Micro and Culture ([facility]) 3474 Comments: Fastin hours pH 7.5 (Better) Range: [...] ml/min (Better) Range: >60 EST GFR, NON-AFR CENTRAL A[place] >60 ml/min (Better) Range: >60 Comments: EST GFR is reported in ml/min per 1.73 m2 of body surface area. For -Citizen Of [place], please multiple result by 1.2.----- GLUCOSE 138 [...]
--- OUTSIDE RECORDS SUMMARY | 2017-02-11 19:34 | XMS REPORT | Summary of Care ---
Author Author Jhony Chou, Jared Organization Unknown Address Unknown Phone Unavailable Care Team Providers Care Macaroni Press Operator Name Role Phone Jared Booker [...] Jared Booker M.D. * Start 11-Dec-2012 Active [place] needles for levemir pen. One shot a [...] Planned Observations Comprehensive Metabolic Panel 1212 On 22-Jun-2016 Intent Planned Goals not documented Planned Encounters [...]
--- OUTSIDE RECORDS SUMMARY | 2017-02-11 19:34 | XMS REPORT | Summary of Care ---
Author Author Thomas Levy M.D. Unknown Address Unknown Phone Unavailable Care Team Providers Care Manufacturing Assistant Name Role Phone Jared Booker M.D. [...] 10:30 * Appointment; Provider: Thomas Levy On 06-May-2016 10:15 * Appointment; Provider: Thomas Levy On 07:00 [...]
--- OUTSIDE RECORDS SUMMARY | 2017-02-11 19:35 | XMS REPORT | Summary of Care ---
Author Author Jhony Chou, Jared Organization Unknown Address [address], [place] [id number] Phone Unavailable Care Team Providers Care Marble Finisher Name Role Phone Jared Booker M.D. Unavailable [...] mouth every day * Quantity: 30 Refills: 11 Jared Booker M.D.* Started 06-Jul-2012 ActiveLisinopril 40 [...] UNITS DAILY * Quantity: 15 Refills: 2 Jarde Booker M.D.* Started 18-May-2014 ActiveFLUoxetine HCl - 20 MG Oral Capsule TAKE FOUR CAPSULES BY MOUTH EVERY DAY * Quantity: 90 Refills: 3 Jared Booker M.D.* Started 11-Oct-2014 ActiveAbilify 15 MG Oral Tablet TAKE 1 TABLET DAILY. * Refills: 0 Jared Booker M.D.* Started 06-Feb-2015 Active Allergies and Adverse Reactions Name Dates [...]
[2017-02-11 19:38] VITALS: BP 138/65; PULSE 107; RESP 16; TEMP 97.9; O2SAT 95; Ht 174 cm; Wt 101.9 kg
--- OUTSIDE RECORDS SUMMARY | 2017-02-11 21:13 | XMS REPORT ---
Author Author GENERATED, SYSTEM Organization Unknown Address Unknown Phone Unavailable Care Team Providers Care Cathode Ray Tube Assembler Name Role Phone MD SARAH, NINI PP [phone] Reason For Visit Reason for Visit from [...] 9:45 AM * Address # 1 : [facility]: [address] [place]- [phone] or Procedures * Completed left knee arthroscopy [...]
[2017-02-11] MEDS ORDERED: ORPHENADRINE 60mg/2ml INJECTION IM ONE (21:15)
[2017-02-11] MEDS ORDERED: KETOROLAC 60mg/2ml INJECTION IM ONE (21:15)
--- NOTE | 2017-02-11 21:16 | ERPDOC ---
Departure Disposition Decision Date: February 11, 2017 Disposition Decision Time: 22:15 Disposition: 01 DISCHARGED HOME, SELF-CARE Impression Impression Impression: Primary Impression: Migraine Qualified Codes: G43.909 - Migraine, unspecified, not intractable, without status migrainosus Severity: Moderate Condition: Stable Seen By: Mid-level only Referrals: NINI SMITH (Family) Patient Instructions: Migraine Headache (ED) Problems/Meds/Labs Reviewed?: Yes Medications reviewed and manag: Yes Additional Instructions: Go home and rest in a dark and cool place. If you have continued pain then follow up with your primary care provider. If any fever, vomiting, or severe pain then return to Er. Follow up care ordered?: Yes Mental Status: Alert HPI - Headache General Chief Complaint: Headache Stated Complaint: MIGRAINE Time Seen by Provider: 20:59 Source: patient Exam Limitations: no limitations HPI - Headache Initial Comments Woke up with a headache this morning. Has a history of migraines and this does feel likes her typical migraine. She has not had any fever or chills or nausea/ vomiting. Has been treated in ER in the past for the same. Occurred At: home Onset: Gradual Duration: 6-12 hrs Severity/Quality: moderate Location: global Prior Headaches/Recent Trauma: no recent headache/trauma Associated Symptoms: DENIES: confusion, facial pain, fatigue, fever/chills, flushing, loss of consciousness, nasal congestion, nasal drainage, nausea/ vomiting, numbness in legs/feet, rash, seizures, sinus infection, stiff neck, vision changes, weakness Hx of Similar Symptoms: Yes Allergies: Coded Allergies: codeine (Verified Allergy, Severe, HIVES,SOA, 02/11/17) Past History Past Medical History Metabolic: diabetes, hypercholesterolemia, hypertension ENMT: dental problems Neurological: headaches, migraines, neuropathy Musculoskeletal: back pain Psychological: depression Surgical History General: appendix, gallbladder Reproductive/: tubal ligation Family History Family PMH: FOUND: other Social History Does patient use chewing tobac: No Second Hand Exposure: No Substance Use Type: does not use Alcohol Intake: none Review of Systems Constitutional Constitutional: DENIES: chills, dizziness, fatigue, fever, weakness Eyes Vision: DENIES: blurring, double vision ENMT Ears: DENIES: drainage, pain Sinuses: DENIES: congestion, rhinorrhea Mouth/Throat: DENIES: scratchy throat, sore throat Cardiovascular Cardiac: DENIES: chest pain, orthopnea Rhythm/Rate: DENIES: irregular beat, palpitations Pulmonary Respiratory: DENIES: cough, dyspnea, sputum, tachypnea GI Upper Abdomen: DENIES: nausea, pain, vomiting Lower Abdomen: DENIES: constipation, diarrhea, pain Integumentary Skin: DENIES: rash Neurological General: DENIES: headache, numbness, tingling, weakness Physical Exam General General Nourishment: well nourished, well developed, appears stated age, no acute distress, adult General Body Habitus: well groomed Vitals and Pain First Documented Vital Signs Date Time Temp Pulse Resp B/P Pulse Ox O2 Delivery O2 Flow Rate FiO2 02/11/17 19:38 97.9 107 16 138/65 95 Room Air Weight: Kilograms: 101.900 Height (feet): 5 Height (inches): 8.50 Triage Pain Scale: RN VS reviewed by Provider: Yes Normal Exams: Dental: No fractured, loose, or missing teeth noted Neck: Full range of motion, without adenopathy, JVD, bruits or thyromegaly Chest/Resp: Clear all juárez, with good airflow, and symmetry bilaterally CV: Regular rate and rhythm, without murmur or gallop, Pulses 2+ all extremities, capillary refill, <2 seconds all ext., no pedal edema noted Abdomen: Bowel sounds positive, soft, non-tender, non-distended, no hepatosplenomegaly, masses or bruits noted Lymphatic: No lymphadenopathy, or lymphedema noted Integumentary: No rashes, hives, or bruising noted Neurologic: Patient is alert, and oriented, cranial nerves, motor/sensory/ cerebellar, exams w/o gross deficits, to observation Psychiatric: Patient exhibits, appropriate attention, emotion and affect Differential Diagnoses Considering: Headache, Headache - Migraine, Headache - Tension/Muscle, Sinusitis - Sphenoid, Sinusitis - Maxillary, Sinusitis - Frontal, Sub-arachnoid Hemorrhage Progress Results/Orders Orders Procedure Category Date Status Time Ketorolac (Toradol) PHA 02/11/17 Complete 21:15 Orphenadrine (Norflex) PHA 02/11/17 Complete 21:15 Hydromorphone PHA 02/11/17 Complete (Dilaudid) 22:15 Medications Current ED Medications Ketorolac Tromethamine (Toradol) 60 mg O ONCE IM Last administered on 21:40; Start 02/11/17 at 21:15; Stop 02/11/17 at 21:16; Status DC Orphenadrine Citrate (Norflex) 60 mg O ONCE IM Last administered on 02/11/17 21:40; Start 02/11/17 at 21:15; Stop 02/11/17 at 21:16; Status DC Hydromorphone HCl (Dilaudid) 0.5 mg O ONCE IM ; Start 02/11/17 at 22:15; Stop at 22:16; Status DC Progress Progress Headache is improved but pain is still present, rates as 8/10. Will give another injection of pain medication and have her go home to rest. FU with PCP if not improving at all. JB BOYKIN APRN February 11, 2017 21:16
[2017-02-11] MEDS ORDERED: MEDR2.5T6 PO (21:57)
[2017-02-11] MEDS ORDERED: INSU100I21 SQ (21:57)
[2017-02-11] MEDS ORDERED: HYDROMORPHONE 2mg/ml INJECTION IM ONE (22:15)
== END 2017-02-11 22:40 | disposition home or self-care (01) ==
LOC: ED 19:22
DX: G43.909 Migraine, unspecified, not intractable, without status migrainosus (principal)
CPT/HCPCS: 96372; 99283; J1170; J1885; J2360